=== PATIENT | female | born 1960 | race Asian ===

== ENCOUNTER 2023-11-05 09:34 | Emergency (ER) | payer BC ==
[~2023-11-05] VITALS: Ht 167.6 cm; Wt 62.6 kg
[2023-11-05 09:46] VITALS: BP_SYST 180; PULSE 83; RESP 17; TEMP 97.6; O2SAT 96
[2023-11-05] MEDS: BACITRACIN 1 GM OINT TP ONE (10:36)
[2023-11-05 10:43] VITALS: TEMP 97.6
[2023-11-05 11:11] VITALS: BP_SYST 162; PULSE 80; RESP 16; O2SAT 97
== END 2023-11-05 10:45 | disposition home or self-care (01) ==
LOC: SED 09:34
DX: S01.01XA Laceration without foreign body of scalp, initial encounter (principal); M54.2 Cervicalgia; V09.9XXA Pedestrian injured in unspecified transport accident, initial encounter; Y93.89 Activity, other specified; Y92.89 Other specified places as the place of occurrence of the external cause; Y99.8 Other external cause status
CPT/HCPCS: 70450-TC; 72125-TC; 99284